=== PATIENT | male | born 1955 | race Caucasian/White ===

== ENCOUNTER 2016-09-13 10:28 | Emergency (ER) | payer BC ==
[~2016-09-13] VITALS: Ht 193 cm; Wt 131.5 kg
[~2016-09-13 10:28] MED LIST: ACID CONTROLLER20 MG PO; ASPIRIN PO; COUMADIN10 MG PO; GINKGO BILOBA120 M1 PO; LISINOPRIL PO; LORTAB 10-5001 EACH PO; LOVENOX100 MG/ML INJ; MAXZIDE-25 MG1 UDTAB PO; METOPROLOL SUCC25 MG PO; MULTI-VITAMIN1 TAB PO; NIACIN100 MG PO; SELENIMIN200 MCG PO; VITAMIN C2000 MG PO; VITAMIN D 3; VITAMIN E1000 UNI1 PO; ZINC100 MG PO; [UNRECOGNIZED DRUG - OTHER] PO
== END 2016-09-13 11:25 | disposition home or self-care (01) ==
LOC: CFTX 10:28 → CED 10:28 → CFTX 11:09
DX: L50.9 Urticaria, unspecified (principal); R49.0 Dysphonia; K80.80 Other cholelithiasis without obstruction; Z87.891 Personal history of nicotine dependence
CPT/HCPCS: 99282

== ENCOUNTER → 2016-09-23 | Outpatient (CLI) | payer BC ==
[2016-09-23 13:50] LABS: BASOPHIL# 0.1 X10e3 (0-0.3); BASOPHIL% 1.3 % (0-2.5); EOSINOPHIL# 0.3 X10e3 (0-0.7); EOSINOPHIL% 3.3 % (0.0-7.0); HEMATOCRIT 43.5 % (38.0-50.0); HEMOGLOBIN 14.7 gm/dL (13.0-16.0); LYMPHOCYTE# 1.8 X10e3 (1.0-3.5); LYMPHOCYTE% 22.2 % (17.0-45.0); MEAN CELL VOLUME 89.6 FL (83-96); MEAN CORPUSCULAR HEMOGLOBIN 30.4 PG (28-34); MEAN CORPUSCULAR HGB CONC 33.9 g/dL (30-36); MEAN PLATELET VOLUME 8.4 FL (6.5-11.5); MONOCYTE# 0.9 X10e3 (0-1.0); MONOCYTE% 11.4 % (3.0-12.0); NEUTROPHIL# 4.9 X10e3 (1.5-7.1); NEUTROPHIL% 61.8 % (40-75); PLATELET COUNT 211 X10e3 (140-420); RED BLOOD COUNT 4.85 X10e (3.90-5.60); RED CELL DISTRIBUTION WIDTH 13.9 % (11.0-15.5); WHITE BLOOD COUNT 7.9 X10e3 (4.0-10.5)
[2016-09-23 13:55] LABS: DIFF IND NO
[2016-09-23 14:11] LABS: ALBUMIN SERUM 4.3 g/dL (3.5-5.0); BILIRUBIN,TOTAL 1.1 mg/dL (0.2-2.0); BUN/CREATININE RATIO 13.33; CALCIUM SERUM 9.2 mg/dL (8.4-10.2); CREATININE SERUM 0.9 mg/dL (0.6-1.4); GLOM FILT RATE Estimated 91.9 mL/min (>60); PROTEIN TOTAL SERUM 7.4 g/dL (6.0-8.3)
== END | disposition home or self-care (01) ==
LOC: CLAB 13:29
PROVIDERS: Internal Medicine Hematology & Oncology
DX: I81 Portal vein thrombosis (principal)
CPT/HCPCS: 36415; 80053; 85025